=== PATIENT | male | born 1990 | race Two or more races ===

== ENCOUNTER 2021-04-19 11:19 | Emergency (ER) | payer OTHER ==
[~2021-04-19] VITALS: Ht 172.7 cm; Wt 70.3 kg
[2021-04-19 11:26] VITALS: BP 138/80
--- NOTE | 2021-04-19 11:31 | NUR ---
PT BIB SELF C/O L middle finger lac last tdap 5 years ago, 05/10 ps. PT A/OX4. TOLERATING R/A WELL WITH NO SOB.
--- NOTE | 2021-04-19 11:32 | NUR ---
WOUND CARE DONE TO L MIDDLE FINGER. KEPT CLEAN AND DRY
--- NOTE | 2021-04-19 12:00 | NUR ---
Patient discharged to home in stable condition. Written and verbal after care instructions given. Patient verbalizes understanding of instruction.
== END 2021-04-19 12:06 | disposition home or self-care (01) ==
LOC: ER 11:24
DX: S61.213A Laceration without foreign body of left middle finger without damage to nail, initial encounter (principal); W26.8XXA Contact with other sharp object(s), not elsewhere classified, initial encounter; Y93.89 Activity, other specified; Y92.89 Other specified places as the place of occurrence of the external cause; Y99.8 Other external cause status
CPT/HCPCS: 12001; 99282; A6403